=== PATIENT | male | born 1985 | race Caucasian/White ===

== ENCOUNTER 2021-04-11 18:21 | Observation (INO) | payer OTHER ==
[~2021-04-11] VITALS: Ht 175.3 cm; Wt 99.8 kg
[2021-04-11 20:16] LABS: HEMOGLOBIN 17.7 gm/dl (14.0-17.5); RED BLOOD COUNT 5.98 M/UL (4.20-5.50); WHITE BLOOD COUNT 19.3 K/UL (4.5-11.0)
[2021-04-11 20:30] LABS: BUN/CREATININE RATIO 7 (0-10)
--- NOTE | 2021-04-12 18:18 | NUR ---
04/12/21 1815 REPORT CALLED TO [facility] TO BE TRANSFERRED TO ROOM [id number] WHEN BED READY
[2021-04-13] MEDS ORDERED: BACTRIM DS TAB1 EACH PO (08:51)
== END 2021-04-13 10:58 | disposition home or self-care (01) ==
LOC: ER1 18:21 → M/S 21:09 → CDU 21:09 → 3 EAST 04-12 13:36 → M/S 04-12 18:19 → 3 EAST 04-12 18:34 → M/S 04-12 20:16
PROVIDERS: Physician Assistant; ADMIT Surgery
PROC: 0V950ZZ Drainage of Scrotum, Open Approach (ICD-10-PCS; principal; 2021-04-12 12:31)
DX: N49.2 Inflammatory disorders of scrotum (principal); F17.210 Nicotine dependence, cigarettes, uncomplicated; Z20.822 Contact with and (suspected) exposure to COVID-19
CPT/HCPCS: 80048; 83605; 85025; 87040; 87070; 87205; 99284; G0378; J1100; J1170; J2250; J2405; J2543; J2704; J3010; J3370; J7120; U0002